=== PATIENT | female | born 1960 | race Asian ===

== ENCOUNTER 2019-05-01 05:59 | Emergency (ER) | payer OTHER ==
[~2019-05-01] VITALS: Ht 160 cm; Wt 59.0 kg
[2019-05-01 06:02] VITALS: Ht 160 cm; Wt 59.0 kg
[2019-05-01 09:00] VITALS: BP 108/65
== END 2019-05-01 08:55 | disposition home or self-care (01) ==
LOC: ED 05:59
DX: N39.0 Urinary tract infection, site not specified (principal); R51 Headache; E11.9 Type 2 diabetes mellitus without complications
CPT/HCPCS: J1885